=== PATIENT | male | born 2005 ===

== ENCOUNTER → 2025-04-29 14:23 | Outpatient (REF) | payer OTHER, SELFPAY ==
--- NOTE | 2025-04-29 14:36 | ECG_ITS ---
Test Reason : Z79.899 Blood Pressure : */* mmHG Vent. Rate : 58 BPM Atrial Rate : 58 BPM P-R Int : 170 ms QRS Dur : 88 ms QT Int : 406 ms P-R-T Axes : 60 51 59 degrees QTcB Int : 398 ms Sinus bradycardia with marked sinus arrhythmia Early Repolarization Otherwise normal ECG No previous ECGs available Referred By: Reynold De Anda Electronically Signed By: MANDA REEVES
--- OUTSIDE RECORDS SUMMARY | 2025-04-29 18:57 | XMS_ITS | Clinical Summary ---
Author Organization [address] Address [address] [place] [id number] Care Team Providers Care Certified Scrum Master Name Role Phone Obtain, Unable To Primary Care Provider Unavaila ble Social History Tobacco Use Types Packs/Day Years Used Date Smoking Tobacco: Never Assessed Interpersonal Safety Answer Date Record ed Is there anyone in your life that is hurting or threatening you in anyway? no 03/22/2024 Physical Indicators of Abuse No evidence of phys ical abuse 03/22/2024 Sex and Gender Information Value Date Recorded Sex Assigned at Not on file Legal Sex Male 4:04 AM EDT Gender Identity Not on file Sexual Orientation Not on file Last Filed Vital Signs Vital Sign Reading Time Taken Comments Blood Pressure 131/76 03/22/2024 6:54 AM EDT Pulse 64 03/22/2024 6:54 AM EDT Temperature 36.8 C (98.3 F) 03/22/2024 6:54 AM EDT Respiratory Rate 16 03/22/2024 6:54 AM EDT Oxygen Saturation 100% 03/22/2024 6:54 AM EDT Inhaled Oxygen Concentration - - Weight - - Height - - Body Mass Index - - Plan of Treatment Health Maintenance Due Date Last Done Comments MMR Vaccines (1 of 1 - Stand pako series) 2005 DTaP/TDaP Vaccines (1 - Tdap) 2011 HIV screening 2017 Varicella Vaccines (1 of 2 - 13+ 2-dose series) 2017 HPV vaccine series (1 - Male 3-dose series) 2019 Meningococcal B Vaccine (1 o f 2 - Standard) 2020 Hepatitis C screening 2022 Hepatitis B vaccine series ( 1 of 3 - 19+ 3-dose series) 2023 Tetanus adult (Td q 10,TDAP once) 2024 Influenza Vaccine Pediatric (#1) 2025 Covid-19 vaccine series (1 - 2024- season) 2025 RSV Immunization (1 - 1-dose 75+ series) 2079 HIB Vaccines Aged Out No longer eligi ble based on patient's age to complete this topic Hepatitis A Vaccines Aged Out No long er eligible based on patient's age to complete this topic IPV Vaccines Aged Out No longer eligi ble based on patient's age to complete this topic Meningococcal Vaccine Aged Out No bharath serge eligible based on patient's age to complete this topic Pneumococcal Vaccine (2 - 49 years) Aged Out No longer eligible based on patient's age to complete this topic Rotavirus Vaccines Aged Out No longer eligible based on patient's age to complete this topic Insurance MEDICAID MANAGED [facility] [place]NA[place] [facility] [place] [facility] Care Teams Certified Scrum Master Relationship Specialty Start Date End Date Obtain, Unable To PCP - General 03/22/24
--- OUTSIDE RECORDS SUMMARY | 2025-04-29 18:58 | XMS_ITS ---
Author Name [facility] Organization Unknown Encounters Encounter Type Encounter Reason Primary Diagnosis Location Date Emergency Alcohol abuse, unspecified Alcohol abuse, unspecified [facility] 03/22/2024 Care Team Organization Name Specialty Phone Email Start Date End Da eric [facility] 03/22/2024
== END ==
LOC: HO.CARD 14:23
PROVIDERS: Visit Provider Nurse Practitioner Psychiatric/Mental Health
DX: Z79.899 Other long term (current) drug therapy (principal); R00.1 Bradycardia, unspecified
CPT/HCPCS: 93005

== ENCOUNTER → 2025-04-29 14:36 | Outpatient (BNV) | payer OTHER, SELFPAY | PROVIDERS: Visit Provider Internal Medicine | DX: R00.1 Bradycardia, unspecified (principal); I49.9 Cardiac arrhythmia, unspecified | CPT/HCPCS: 93010 ==